=== PATIENT | female | born 1995 | race Hispanic/Latino ===

== ENCOUNTER 2020-06-28 20:05 | Emergency (ER) | payer OTHER ==
--- NOTE | 2020-06-28 20:13 | Emergency Department Report ---
Blank Doc - Documentation Documentation: 25-year-old female that presents with left ankle pain and swelling. This initial assessment/diagnostic orders/clinical plan/treatment(s) is/are subject to change based on patient's health status, clinical progression and re- assessment by fellow clinical providers in the ED. Further treatment and workup at subsequent clinical providers discretion. Patient/guardians urged not to elope from the ED as their condition may be serious if not clinically assessed and managed. Initial orders include: 1- Patient sent to [facility] for further evaluation and treatment 2- xrays
[2020-06-28 20:15] VITALS: BP 185/94
--- NOTE | 2020-06-28 21:33 | XRay Report ---
LEFT ANKLE 3 VIEW(S) INDICATION / CLINICAL INFORMATION: left ankle pain COMPARISON: None available. FINDINGS: BONES / JOINT(S): Mild cortical irregularity noted of the cuboid on lateral views, dedicated radiogra phs of the foot are recommended for further evaluation to rule out fracture. No dislocation. No signi ficant arthritis. The ankle mortise is intact. SOFT TISSUES: Soft tissue swelling is noted over the lateral aspect of the foot and ankle. ADDITIONAL FINDINGS: None. Signer Name: Tray Chandler MD Signed: 06/28/2020 9:29 PM Workstation Name: [id number]
[2020-06-29] MEDS ORDERED: IBUPROFEN 600 MG TAB PO ONE (00:35)
[2020-06-29] MEDS ORDERED: ONDANSETRON 4 MG ODT TAB PO ONE (00:35)
[2020-06-29] MEDS ORDERED: HYDROcodone/ACETAMINOPHEN 7.5-325MG TAB PO ONE (00:35)
--- NOTE | 2020-06-29 02:05 | Emergency Department Report ---
ED Lower Extremity HPI - General Chief Complaint: Extremity Injury, Lower Stated Complaint: ANKLE PAIN Time Seen by Provider: 06/28/20 20:10 Source: patient Mode of arrival: Ambulatory Limitations: No Limitations - History of Present Illness Initial Comments: Patient is a 25-year-old female with no past medical history presents to the ED with complaint of acute onset persistent severe painful swollen left ankle after she tripped and twisted her left ankle at work about 5 hours ago. Patient states that she had a "pop" sound in the process. Patient states that the pain is worse with any active range of motion or bearing weight on the left ankle and foot. Patient denies head or neck injuries, back pain, hip pain, chest pain, shortness of breath, loss of consciousness, numbness and tingling or weakness of lower extremities bilaterally, dizziness, syncope or change in vision. MD Complaint: ankle injury (left), fall, other (Tripped and twisted left ankle about 5 hours ago) -: Sudden, hour(s) (5) Injury: Ankle: Left (Swollen and painful) Type of Injury: inversion Place: street/outdoors Severity: severe Severity scale (0 -10): 8 Improves With: nothing Worsens With: weight bearing, movement, palpation Context: fall, direct blow, walking, other (Twisted left ankle) Associated Symptoms: snap/pop sensation, swelling, unable to bear weight. denies: numbness, tingling, ambulatory, other - Related Data Previous Rx's Medication Instructions Recorded Last Taken Type Ibuprofen [Motrin] 800 mg PO Q8HR PRN #30 tablet 06/29/20 Unknown Rx methOCARBAMOL [Robaxin TAB] 750 mg PO Q8H PRN #30 tablet 06/29/20 Unknown Rx traMADoL [Ultram] 50 mg PO Q6HR PRN #12 tablet 06/29/20 Unknown Rx Allergies Allergy/AdvReac Type Severity Reaction Status Date / Time No Known Allergies Allergy Verified 06/28/20 20:10 ED Review of Systems ROS: Stated complaint: ANKLE PAIN Other details as noted in HPI Constitutional: denies: chills, fever Eyes: denies: eye pain, eye discharge, vision change ENT: denies: ear pain, throat pain Respiratory: denies: cough, shortness of breath, wheezing Cardiovascular: denies: chest pain, palpitations Endocrine: no symptoms reported Gastrointestinal: denies: abdominal pain, nausea, diarrhea Genitourinary: denies: urgency, dysuria, discharge Musculoskeletal: joint swelling (Swollen, painful left ankle), arthralgia (Left ankle pain and swelling). denies: back pain Skin: denies: rash, lesions Neurological: denies: headache, weakness, paresthesias Psychiatric: denies: anxiety, depression Hematological/Lymphatic: denies: easy bleeding, easy bruising ED Past Medical Hx - Past Medical History Previous Medical History?: No - Surgical History Past Surgical History?: No - Social History Smoking Status: Never Smoker Substance Use Type: None - Medications Home Medications: Home Medications Medication Instructions Recorded Confirmed Last Taken Type Ibuprofen [Motrin] 800 mg PO Q8HR PRN #30 tablet 06/29/20 Unknown Rx methOCARBAMOL [Robaxin TAB] 750 mg PO Q8H PRN #30 tablet 06/29/20 Unknown Rx traMADoL [Ultram] 50 mg PO Q6HR PRN #12 tablet 06/29/20 Unknown Rx ED Physical Exam - General Limitations: No Limitations General appearance: alert, in no apparent distress - Head Head exam: Present: atraumatic, normocephalic, normal inspection - Eye Eye exam: Present: normal appearance, PERRL, EOMI Pupils: Present: normal accommodation - ENT ENT exam: Present: normal exam, normal orophraynx, mucous membranes moist, TM's normal bilaterally, normal external ear exam - Neck Neck exam: Present: normal inspection, full ROM - Respiratory Respiratory exam: Present: normal lung sounds bilaterally. Absent: respiratory distress, wheezes, rhonchi, chest wall tenderness, accessory muscle use, decreased breath sounds - Cardiovascular Cardiovascular Exam: Present: regular rate, normal rhythm, normal heart sounds. Absent: systolic murmur, diastolic murmur, rubs, gallop - GI/Abdominal GI/Abdominal exam: Present: soft, normal bowel sounds. Absent: tenderness, guarding, rebound, hyperactive bowel sounds, hypoactive bowel sounds, organomegaly - Extremities Exam Extremities exam: Present: normal inspection, tenderness (Palpable severe left ankle tenderness and mild swelling with limited range of motion due to pain), normal capillary refill, joint swelling (Mildly swollen left ankle joint). Absent: full ROM (Limited range of motion of left ankle due to severe pain) - Back Exam Back exam: Present: normal inspection, full ROM. Absent: tenderness, CVA tenderness (L), muscle spasm, paraspinal tenderness, vertebral tenderness - Neurological Exam Neurological exam: Present: alert, oriented X3, CN II-XII intact, normal gait, reflexes normal - Psychiatric Psychiatric exam: Present: normal affect, normal mood - Skin Skin exam: Present: warm, dry, intact, normal color. Absent: rash ED Course Vital Signs 06/28/20 20:11 Temperature 98.6 F Pulse Rate 94 H Respiratory 16 Rate Blood Pressure 185/94 O2 Sat by Pulse 97 Oximetry ED Lower Extremity MDM - Radiology Data Radiology results: report reviewed, image reviewed Findings [facility] [address] [place] [address] XRay Report Signed Patient: MILLIE ELLINGTON MR#: [id number] : 1995 Acct:[id number] Age/Sex: 25 / F ADM Date: 06/28/20 Loc: ED Attending Dr: Ordering Physician: KASHIF PALACIOS NP Date of Service: 06/28/20 Procedure(s): XR ankle 3+V LT Accession Number(s): [id number] cc: KASHIF PALACIOS NP Fluoro Time In Minutes: LEFT ANKLE 3 VIEW(S) INDICATION / CLINICAL INFORMATION: left ankle pain COMPARISON: None available. FINDINGS: BONES / JOINT(S): Mild cortical irregularity noted of the cuboid on lateral views, dedicated radiographs of the foot are recommended for further evaluation to rule out fracture. No dislocation. No significant arthritis. The ankle mortise is intact. SOFT TISSUES: Soft tissue swelling is noted over the lateral aspect of the foot and ankle. ADDITIONAL FINDINGS: None. Signer Name: Tray Kennedy MD Signed: 06/28/2020 9:29 PM Workstation Name: [id number] Transcribed By: Dictated By: TRAY KENNEDY Electronically Authenticated By: TRAY KENNEDY Signed Date/Time: 06/28/202128 DD/ 24 TD/TT: Findings [facility] [address] [place] [address] XRay Report Signed Patient: MILLIE ELLINGTON MR#: [id number] : 1995 Acct:[id number] Age/Sex: 25 / F ADM Date: 06/28/20 Loc: ED Attending Dr: Ordering Physician: KENJI KENT Date of Service: 06/29/20 Procedure(s): XR foot 3+V LT Accession Number(s): [id number] cc: KENJI KENT Fluoro Time In Minutes: LEFT FOOT, 3 VIEWS INDICATION / CLINICAL INFORMATION: Pain, injury. COMPARISON: Right ankle FINDINGS: No fracture or dislocation. No fracture of the cuboid. IMPRESSION: No fracture or dislocation of the foot. Signer Name: Nora Braxton MD Signed: 06/29/2020 2:44 AM Workstation Name: [id number] Transcribed By: JR Dictated By: Nora Braxton MD Electronically Authenticated By: Nora Braxton MD Signed Date/Time: 06/29/20243 DD/ 9 TD/TT: - Medical Decision Making This is a 25-year-old female with no past medical history presents to the ED with complaint of acute onset persistent severe painful swollen left ankle after she tripped and twisted her left ankle at work about 5 hours ago. Patient states that she had a "pop" sound in the process. Patient states that the pain is worse with any active range of motion or bearing weight on the left ankle and foot. In the ED, patient is alert and oriented x3 and is not in any distress but appears to be significant pain. Left ankle x-ray shows no acute fractures or subluxations but soft tissue swelling on the left lateral malleolus. Left foot x-ray shows no acute fractures or subluxations. Patient was treated for pain in the ED and left ankle was splinted with Raudel wrap and the patient was discharged home on pain medications and muscle relaxants and also given crutches to aid in ambulation. Patient was advised to follow-up with her primary care physician in 7 to 10 days for reevaluation. Patient was also given a referral to the orthopedic surgeon on-call Dr. Tristan for further evaluation. Patient was advised to return to the ED immediately if symptoms get worse. - Differential Diagnosis Ankle fracture; Ankle sprain; Foot fracture; Foot sprain Critical care attestation.: If time is entered above; I have spent that time in minutes in the direct care of this critically ill patient, excluding procedure time. ED Disposition Clinical Impression: Severe sprain of left ankle Qualifiers: Encounter type: initial encounter Qualified Code(s): S93.402A - Sprain of unspecified ligament of left ankle, initial encounter Muscle strain of left foot Qualifiers: Encounter type: initial encounter Qualified Code(s): S96.912A - Strain of unspecified muscle and tendon at ankle and foot level, left foot, initial encounter Disposition: TO HOME OR SELFCARE Is pt being admited?: No Does the pt Need Aspirin: No Condition: Stable Instructions: Ankle Sprain, [id number], Muscle Strain, [id number] Additional Instructions: The left ankle x-ray shows no acute fractures or subluxations. Therefore take pain medications with food, drink plenty of fluids and follow-up with your primary care physician in 7 to 10 days for reevaluation. Consider following up with orthopedic surgeon Dr. Tristan for further evaluation. Return to the ED immediately if symptoms get worse. Prescriptions: Ibuprofen [Motrin] 800 mg PO Q8HR PRN #30 tablet PRN Reason: Pain , Severe (7-10) methOCARBAMOL [Robaxin TAB] 750 mg PO Q8H PRN #30 tablet PRN Reason: Muscle Spasm traMADoL [Ultram] 50 mg PO Q6HR PRN #12 tablet PRN Reason: Pain Referrals: TRUMAN TRISTAN MD [Staff Physician] - 3-5 Days HEYDI VALERO MD [Staff Physician] - 7-10 days Forms: Work/School Release Form(ED) Time of Disposition: 02:13 Print Language: DUTCH
--- NOTE | 2020-06-29 02:49 | XRay Report ---
LEFT FOOT, 3 VIEWS INDICATION / CLINICAL INFORMATION: Pain, injury. COMPARISON: Right ankle FINDINGS: No fracture or dislocation. No fracture of the cuboid. IMPRESSION: No fracture or dislocation of the foot. Signer Name: Nora Braxton MD Signed: 06/29/2020 2:44 AM Workstation Name: [id number]
== END 2020-06-29 04:00 | disposition home or self-care (01) ==
LOC: EDBD → ED 20:05
DX: S93.402A Sprain of unspecified ligament of left ankle, initial encounter (principal); S96.912A Strain of unspecified muscle and tendon at ankle and foot level, left foot, initial encounter; Z79.1 Long term (current) use of non-steroidal anti-inflammatories (NSAID); Z79.899 Other long term (current) drug therapy; X50.1XXA Overexertion from prolonged static or awkward postures, initial encounter; Y93.89 Activity, other specified; Y92.89 Other specified places as the place of occurrence of the external cause; Y99.8 Other external cause status
CPT/HCPCS: Q0162